=== PATIENT | male | born 1995 | race Caucasian/White ===

== ENCOUNTER 2016-11-24 20:24 | Emergency (ER) | payer OTHER ==
[~2016-11-24] VITALS: Ht 180.3 cm; Wt 61.0 kg
[2016-11-24 20:33] VITALS: BP 117/75; PULSE 60; RESP 16; TEMP 98.4; O2SAT 100
[2016-11-24] MEDS ORDERED: LIDOCAINE 1%/EPINEPHrine 1:100,000 SOLN 20 ML VIAL INFIL ONE (22:15)
[2016-11-24] MEDS ORDERED: TETANUS/DIPHTHERIA TOXOID ADULT 0.5 ML VIAL IM ONE (22:15)
--- NOTE | 2016-11-24 22:29 | PD ---
HPI Chief Complaint: Laceration/Skin Injury Time Seen by Provider: 22:00 Travel History International Travel<30 days: No Contact w/Intl Traveler<30days: No Traveled to known affect area: No History of Present Illness HPI 21-year-old right-handed male presents to the emergency room for evaluation of right hand laceration that occurred just prior to arrival. Patient states a glass was falling and he attempted to catch it and sustained a large laceration to the palmar aspect of his right hand. Patient states it bled a lot. He is not on blood thinners. He went to an urgent care center where he was told to go to the emergency room because he was having problems flexing his finger. Patient states he cannot flex the second digit. He denies paresthesias. Unknown last tetanus. PFSH Past Medical History ADHD: Yes Cancer: No Cardiovascular Problems: Yes (HEART MURMUR) Psychiatric: Yes Immunizations Current: Yes Seizures: No Thyroid Disease: No Ulcer: No Tetanus Vaccination: > 5 Years Influenza Vaccination: No Past Surgical History Surgical History: No Previous Surgery Social History Alcohol Use: Yes (Occ.) Tobacco Use: Yes (11/22 PPD) Substance Use: Yes (Marijuana occ.) Allergies-Medications (Allergen,Severity, Reaction): Coded Allergies: No Known Allergies (Verified , 11/24/16) Reported Meds & Prescriptions Reported Meds & Active Scripts Active Keflex (Cephalexin) 500 Mg Cap 500 Mg PO Q6H 7 Days Review of Systems Except as stated in HPI: all other systems reviewed are Neg Physical Exam Narrative GENERAL: Well-nourished, well-developed male in no acute distress. Afebrile. Ambulatory. SKIN: Warm and dry. There is a 3 deep cm horizontal laceration about 1 cm below the second and third fingers on the palmar side of the right hand. Hemostasis controlled. HEAD: Normocephalic. EYES: No scleral icterus. No injection or drainage. NECK: Supple, trachea midline. No JVD or lymphadenopathy. EXTREMITY: Right hand mildly tender to palpation over the laceration. Patient has no flexion of the second digit; extension is intact. No edema. Normal opposition of thumb. Distal extremity neurovascularly intact with intact two point discrimination and less than 2 second capillary refill. Data Data Last Documented VS Vital Signs Date Time Temp Pulse Resp B/P Pulse Ox O2 Delivery O2 Flow Rate FiO2 11/24/16 20:33 98.4 60 16 117/75 100 Room Air Orders Tetanus/Diphtheria Tox Adult (Tetanus/Di (11/24/16 22:15) Lidocai-Epi 1%-1:100,000 Inj (Xylocaine- (11/24/16 22:15) Hand, Limited (2vws) (11/24/16 ) Cephalexin (Keflex) (11/24/16 23:00) Ibuprofen (Motrin) (11/24/16 23:00) MDM Medical Decision Making Medical Screen Exam Complete: Yes Emergency Medical Condition: Yes Medical Record Reviewed: Yes Differential Diagnosis Tendon injury versus laceration versus abrasion versus Narrative Course 21-year-old right-handed male presents to the emergency room for evaluation of laceration to the right hand occurred just prior to arrival. There is a 4 cm laceration on the volar right hand 1 cm below the second and third fingers. Patient has no flexion of the second digit. Extension is intact. Neurovascularly intact with less than 2 second capillary refill and 2 point discrimination. Laceration was caused by glass; x-ray shows no retained foreign body. Tetanus was updated. I spoke to the hand surgeon, Dr. Kwok, who recommends closing the wound, applying splint, and having the patient follow up in his office on Sunday for surgical repair of the tendon laceration. See procedure note for details. Patient placed in a modified ulnar gutter. Patient given ibuprofen and Keflex in the emergency room. Discharged with prescription for Keflex. Stressed the importance of follow-up on Sunday for surgery or return sooner for worsening symptoms such as cyanosis or decreased capillary refill. He understands and agrees to this plan. Procedures Procedure Narrative LACERATION LOCATION: Right volar hand LENGTH: 4 cm NUMBER OF STITCHES/JOE: 7 simple interrupted REPAIR: The area of the laceration was prepped with Betadine and sterilely draped. The laceration was infiltrated with 1% lidocaine with epinephrine. The wound was copiously irrigated and explored without evidence of foreign body , tendon injury or neurovascular injury. The wound was closed using 5-0 Prolene. This was a single layer repair. A sterile dressing was applied. The patient was advised to keep the dressing clean and dry. Patient tolerated the procedure well. Diagnosis Primary Impression: Laceration of right hand involving tendon Qualified Code: S61.411A - Laceration of right hand involving tendon, initial encounter Referrals: Anna Kwok MD Patient Instructions: General Instructions, Tendon Laceration (ED) Additional Instructions: Rest and drink plenty of fluids. Keep hand clean and dry. Keep splint on until follow-up. Take ibuprofen with food as directed, as needed for pain. You need surgery to correct the tendon laceration. Follow-up with the hand surgeon, Dr. Kwok. Call his office on Sunday for appointment. Return to the emergency room for worsening symptoms. Med/Other Pt SpecificInfo: Prescription(s) given Scripts Cephalexin (Keflex)500 Mg Hue866 Mg PO Q6H 7 Days Ref 0 Prov:Shalini Castaneda MD 11/24/16 Disposition: 01 DISCHARGE HOME Condition: Stable Rosalina Lenz Nov 24, 2016 22:29
--- NOTE | 2016-11-24 22:47 | RADHPO ---
EXAM DATE/TIME: 11/24/2016 22:28 [facility] COMPARISON: No previous studies available for comparison. INDICATIONS : Evaluate for foreign body. Patient cut hand with glass. MEDICAL HISTORY : None. SURGICAL HISTORY : None. ENCOUNTER: Initial ACUITY: 1 day PAIN SCORE: 8/10 LOCATION: Right upper extremity FINDINGS: Two view examination of the right hand demonstrates no soft tissue swelling, dislocation, or fracture . The joint spaces are maintained. Bony mineralization is normal. CONCLUSION: 1. No acute findings. No radiopaque foreign body is identified. Pedrito Michelle MD on November 24, 2016 at 22:44 Board Certified Radiologist. This report was verified electronically.
[2016-11-24] MEDS ORDERED: CEPH-460 PO (22:58)
[2016-11-24] MEDS ORDERED: IBUPROFEN 600 MG TAB PO ONE (23:00)
[2016-11-24] MEDS ORDERED: CEPHALEXIN MONOHYDRATE 500 MG CAP PO ONE (23:00)
[2016-11-25 00:02] VITALS: BP 128/72
[2016-11-25] MEDS ORDERED: IBUP800T23 PO (16:46)
[2016-12-07] MEDS ORDERED: IBUP800T23 PO (11:07)
[2016-12-08] MEDS ORDERED: IBUP800T23 PO (14:20)
== END 2016-11-25 00:05 | disposition home or self-care (01) ==
LOC: PHED 20:24 → PHEFT 11-25 00:05
DX: S66.921A Laceration of unspecified muscle, fascia and tendon at wrist and hand level, right hand, initial encounter (principal); R01.1 Cardiac murmur, unspecified; F90.9 Attention-deficit hyperactivity disorder, unspecified type; Z23 Encounter for immunization; W25.XXXA Contact with sharp glass, initial encounter
CPT/HCPCS: 12002; 29125; 73120; 90471; 90714

== ENCOUNTER 2016-11-25 15:15 | Emergency (ER) | payer OTHER ==
[~2016-11-25] VITALS: Ht 180.3 cm; Wt 60.7 kg
[~2016-11-25 15:15] MED LIST: CEPH-460 PO
[2016-11-25 15:28] VITALS: BP 123/87; PULSE 56; RESP 16; TEMP 98.5; O2SAT 100
[2016-11-25] MEDS ORDERED: CEPHALEXIN MONOHYDRATE 500 MG CAP PO ONE (16:45)
[2016-11-25] MEDS ORDERED: IBUPROFEN 800 MG TAB PO ONE (16:45)
[2016-11-25] MEDS ORDERED: IBUP800T23 PO (16:46)
--- NOTE | 2016-11-25 16:46 | PD ---
HPI Chief Complaint: Wound/Suture/Staple Re-Check Time Seen by Provider: 16:39 Travel History International Travel<30 days: No Contact w/Intl Traveler<30days: No Traveled to known affect area: No History of Present Illness HPI Patient is a 21-year-old male presenting for wound check. He was seen here yesterday for right volar laceration with a broken glass. There is evidence of right second digit flexor tendon involvement. The PA yesterday spoke to Dr. Kwok who recommended closure and placing patient in the splint as well as Keflex prophylaxis. Patient was given 1 dose here as well as tetanus updated and given a prescription. He has not filled the prescription as of yet. He reports pain in the palm like it is swelling. He feels like the splint was on too tight and he denies any paresthesias or cyanosis. He denies any sensation loss. Denies fever. He has kept the splint in place. PFSH Past Medical History ADHD: Yes Cancer: No Cardiovascular Problems: Yes (HEART MURMUR) Psychiatric: Yes Immunizations Current: Yes Seizures: No Thyroid Disease: No Ulcer: No Social History Alcohol Use: Yes (Occ.) Tobacco Use: Yes (11/22 PPD) Substance Use: Yes (Marijuana occ.) Allergies-Medications (Allergen,Severity, Reaction): Coded Allergies: No Known Allergies (Verified , 11/25/16) Reported Meds & Prescriptions Reported Meds & Active Scripts Active Keflex (Cephalexin) 500 Mg Cap 500 Mg PO Q6H 7 Days Review of Systems General / Constitutional: No: Fever, Chills Musculoskeletal: Positive: Other (loss range of motion a second digit right hand per history of present illness) Skin: Positive Other (laceration per history of present illness) Neurologic: No: Weakness, Focal Abnormalities, Paresthesia, Sensory Disturbance Physical Exam Narrative GENERAL: Well-developed and well-nourished adult male in no acute distress. SKIN: Warm and dry. Good turgor without tenting. HEAD: Normocephalic and atraumatic. EYES: PERRL bilaterally, 5mm. EOMI bilaterally. No injection or icterus present. No proptosis. Lids without edema or erythema. CARDIOVASCULAR: Regular rate and rhythm without murmurs, rubs, clicks or gallops. Radial pulses 2+ bilaterally. Capillary refill less than 2 seconds distal tip of all fingers of right hand. RESPIRATORY: Clear to auscultation bilaterally with symmetrical rise and fall, no distress or use of accessory muscles. MUSCULOSKELETAL: Close laceration to the volar aspect of the right hand around the second through fourth digits. There is no crusting or bleeding, edema, warmth or erythema. No drainage. Mildly tender in this region. All sutures are in place. Patient has full flexion and extension on the thumb and the third through fifth digits of the right hand and can flex at the MCP joint for the second digit but cannot flex the individual IP joints. Patient freely moving all four extremities spontaneously. Extremities without clubbing, cyanosis, or edema. No obvious deformities. NEUROLOGIC: CN II-XII grossly intact. Awake and alert. She points pronation intact distal tip of all fingers of right hand. Normal speech. PSYCHIATRIC: Appropriate mood and affect; insight and judgment normal. Data Data Last Documented VS Vital Signs Date Time Temp Pulse Resp B/P Pulse Ox O2 Delivery O2 Flow Rate FiO2 11/25/16 15:28 98.5 56 16 123/87 100 Orders Cephalexin (Keflex) (11/25/16 16:45) Ibuprofen (Motrin) (11/25/16 16:45) Splint Or Brace Apply/Monitor (11/25/16 16:38) MDM Medical Decision Making Medical Screen Exam Complete: Yes Emergency Medical Condition: Yes Differential Diagnosis Hand laceration versus wound dehiscence versus wound infection versus neurovascular injury Narrative Course Patient is a 21-year-old male presenting with pain at laceration site that was repaired last evening. He's been in a splint and told me that he thinks it was too tight and he's had some swelling and burning and pain in the hand. Denies any systemic symptoms and he is afebrile and nontoxic appearing. It appears to be healing well. He has not filled his antibiotics yet however this would be rather early for infection. Splint was are removed by staff when I evaluated the patient and he is still neurovascularly intact and I see no evidence at this point was on too tight causing neurovascular compromise. He seems to complain that he did not receive any medication for pain and has not taken OTC ibuprofen or Tylenol as he does not have any at home. The wound was dressed and a new splint was applied. Patient was given a Keflex and ibuprofen here and recommended to fill a prescription of Keflex he has already, gave him prescription for ibuprofen for the pain. He is a follow-up with Dr. Kwok on Sunday as previously agreed.See discharge paperwork for further instructions. The plan was discussed with the patient who acknowledged their understanding and agreement. Reinforced the follow-up with primary care is critically important. Patient instructed on emergent conditions that should prompt return to ED. Diagnosis Primary Impression: Laceration of right hand involving tendon Qualified Code: S61.411D - Laceration of right hand involving tendon, subsequent encounter Referrals: Anna Kwok MD Patient Instructions: General Instructions Additional Instructions: Fill your prescriptions and begin taking them as soon as possible Keep splint in place until seen by Dr. Kwok on Sunday Call Dr. Kwok Sunday morning for appointment same day Return to the ED for any acute worsening of symptoms including worsening pain or fever Med/Other Pt SpecificInfo: Prescription(s) given Disposition: DISCHARGE HOME Condition: Stable Douglas Horne III Nov 25, 2016 16:46
[2016-12-07] MEDS ORDERED: IBUP800T23 PO (11:07)
[2016-12-08] MEDS ORDERED: IBUP800T23 PO (14:20)
== END 2016-11-25 17:40 | disposition home or self-care (01) ==
LOC: PHEFT 15:15
DX: S61.411D Laceration without foreign body of right hand, subsequent encounter (principal); W25.XXXD Contact with sharp glass, subsequent encounter; Y93.9 Activity, unspecified; Z72.0 Tobacco use; F12.90 Cannabis use, unspecified, uncomplicated
CPT/HCPCS: 29125

== ENCOUNTER 2016-11-28 13:35 | Emergency (ER) | payer OTHER ==
[~2016-11-28] VITALS: Ht 180.3 cm; Wt 62.2 kg
[~2016-11-28 13:35] MED LIST changes: +IBUP800T23 PO
[2016-11-28 13:41] VITALS: BP 143/87; PULSE 67; RESP 16; TEMP 97.3; O2SAT 98
--- NOTE | 2016-11-28 14:14 | PD ---
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 Patient had a volar splint placed 4 days ago after sustaining a tendon laceration of the right second finger. He came in the following day requesting a splint to be removed because it was too tight. He had a new splint placed today. Patient presents today stating that his new splint got wet in the shower and his hand feels constantly wet. Patient believes it is due to sweat. He has sutures on the palmar aspect of the right hand. Denies paresthesias. Reports stiffness in his hand from keeping it still. PFSH Past Medical History ADHD: Yes Blood Disorders: No Cancer: No Cardiovascular Problems: Yes (HEART MURMUR) Diminished Hearing: No Psychiatric: Yes Immunizations Current: Yes Seizures: No Thyroid Disease: No Ulcer: No Past Surgical History Surgical History: No Previous Surgery Other Surgery: No Social History Alcohol Use: Yes (FEW TIMES PER WEEK) Tobacco Use: Yes (11/22 PPD) Substance Use: Yes (Marijuana occ.) Allergies-Medications (Allergen,Severity, Reaction): Coded Allergies: No Known Allergies (Verified , 11/28/16) Reported Meds & Prescriptions Reported Meds & Active Scripts Active Ibuprofen 800 Mg Tab 800 Mg PO Q8H Keflex (Cephalexin) 500 Mg Cap 500 Mg PO Q6H 7 Days Review of Systems Except as stated in HPI: all other systems reviewed are Neg Physical Exam Narrative GENERAL: Well-nourished, well-developed male in no acute distress. Afebrile. Ambulatory. SKIN: Warm and dry. There is a 3 cm slightly macerated laceration on the palmar aspect of the right hand. Sutures are intact. No drainage. No lymphangitis. No signs of infection. HEAD: Normocephalic. EYES: No scleral icterus. No injection or drainage. NECK: Supple, trachea midline. No JVD or lymphadenopathy. EXTREMITY: Right hand nontender. Full range of motion in all joints except the right second digit which has no flexion ability. No edema. Data Data Last Documented VS Vital Signs Date Time Temp Pulse Resp B/P Pulse Ox O2 Delivery O2 Flow Rate FiO2 11/28/16 13:41 97.3 67 16 143/87 98 Orders Splint Or Brace Apply/Monitor (11/28/16 14:02) MDM Medical Decision Making Medical Screen Exam Complete: Yes Emergency Medical Condition: Yes Medical Record Reviewed: Yes Differential Diagnosis Tendon laceration versus wound recheck versus splint recheck Narrative Course 21-year-old male presents to the emergency room for splint recheck. He had a splint placed 4 days ago after lacerating a flexor tendon on the right hand. This is the patient's third visit for this same complaint. States the splint got wet and his hand feels constantly sweaty. This is concerning because of the underlying laceration. Splint was removed. There is no evidence of infection but the laceration is slightly macerated. Wound care provided. Patient will be placed in Velcro wrist splint with finger splint extension to keep his second finger slightly flexed. He has a follow-up appointment with hand surgeon in 2 days. Patient told to return for worsening symptoms. He understands and agrees to plan. Diagnosis Primary Impression: Laceration of right hand involving tendon Qualified Code: S61.411D - Laceration of right hand involving tendon, subsequent encounter Referrals: Anna Kwok MD Patient Instructions: General Instructions, Tendon Laceration (ED) Additional Instructions: Keflex as directed, until gone. Follow-up with Dr. Kwok as scheduled. You can take splint off to shower but be sure to replace it afterwards. Disposition: 01 DISCHARGE HOME Condition: Stable Rosalina Lenz Nov 28, 2016 14:14
[2016-12-07] MEDS ORDERED: IBUP800T23 PO (11:07)
[2016-12-08] MEDS ORDERED: IBUP800T23 PO (14:20)
== END 2016-11-28 14:26 | disposition home or self-care (01) ==
LOC: PHEFT 13:35
DX: S61.411D Laceration without foreign body of right hand, subsequent encounter (principal); Z48.00 Encounter for change or removal of nonsurgical wound dressing
CPT/HCPCS: 99282; L3908

== ENCOUNTER 2016-12-04 13:18 | Emergency (ER) | payer OTHER ==
[~2016-12-04] VITALS: Ht 180.3 cm; Wt 60.0 kg
[2016-12-04 13:25] VITALS: BP 128/76; PULSE 60; RESP 16; TEMP 98.1; O2SAT 100
--- NOTE | 2016-12-04 14:11 | PD ---
HPI Chief Complaint: Wound/Suture/Staple Re-Check Time Seen by Provider: 14:11 Travel History International Travel<30 days: No Contact w/Intl Traveler<30days: No Traveled to known affect area: No History of Present Illness HPI 21-year-old male presents to the emergency department for evaluation of right hand wound. The patient was initially seen 11/24/16 4 a laceration to his right hand palm and right second finger flexor tendon. Sutures were placed at that time and he was prescribed Keflex. Patient subsequently came back the next day to already for the splint to be changed because it was too tight. Patient was seen 11/28/16 in our emergency department again because he felt as though the wound was wet and had the splint removed again and was given a Velcro splint. He was seen by Dr. Kwok hand surgeon 11/30/16 for preoperative visit, he is scheduled to have surgical repair of flexor tendon of right index finger on 12/08. The patient came in today because he became angry that he could not write and pulled his splint off. He initially states he is here to have the splint replaced but then begins to become very emotional and tell me about his social stressors. He states he has lost his job due to this injury and will be kicked out of his home this Sunday because he can't pay rent. States he is having suicidal ideations due to his worsening depression. He denies any attempts to harm himself, denies any ingestion of substances. He denies any homicidal ideations. Denies any alcohol use. Admits to marijuana use. He admits that he has a history of bipolar disorder and depression and has been off his Risperdal for the past month because he ran out. States he has attempted suicide in the past. He is requesting to "speak with someone" regarding his psychological distress. No other complaints. PFSH Past Medical History Hx Anticoagulant Therapy: No ADHD: Yes Blood Disorders: No Cancer: No Cardiovascular Problems: Yes (Heart murmur) Diabetes: No Diminished Hearing: No Psychiatric: Yes Immunizations Current: Yes Seizures: No Thyroid Disease: No Ulcer: No Tetanus Vaccination: < 5 Years Influenza Vaccination: No Past Surgical History Surgical History: No Previous Surgery Other Surgery: No Social History Alcohol Use: Yes (Occ.) Tobacco Use: Yes (1/4 PPD) Substance Use: Yes (Marijuana occ. (Denies today 12/04/16)) Allergies-Medications (Allergen,Severity, Reaction): Coded Allergies: No Known Allergies (Verified , 12/04/16) Reported Meds & Prescriptions Reported Meds & Active Scripts Active Keflex (Cephalexin) 500 Mg Cap 500 Mg PO Q6H 7 Days Review of Systems Except as stated in HPI: all other systems reviewed are Neg Physical Exam Narrative GENERAL: Well-nourished and well-developed pleasant patient in no acute distress who is nontoxic appearing. SKIN: Warm and dry. Right hand sutures in place, no erythema or warmth, no discharge or drainage, no swelling. HEAD: Normocephalic and atraumatic. EYES: No injection, drainage, or hyphema noted. PERRLA. EOMI. ENT: No nasal drainage noted. Oropharynx is clear. NECK: Supple and the trachea is midline. CARDIOVASCULAR: Regular rate and rhythm. RESPIRATORY: Breath sounds are equal bilaterally with no accessory muscle use, wheezing, rhonchi, or crackles. GASTROINTESTINAL: Abdomen is soft, non-tender, and nondistended. MUSCULOSKELETAL: No obvious deformities, swelling, cyanosis, or ecchymosis is present throughout the upper and lower extremities. Patient has full range of motion without any signs of neurovascular compromise. NEUROLOGICAL: Awake, alert, and oriented. Normal speech and gait. Cranial nerves are grossly intact. Data Data Last Documented VS Vital Signs Date Time Temp Pulse Resp B/P Pulse Ox O2 Delivery O2 Flow Rate FiO2 12/04/16 16:36 98.9 57 20 168/80 97 Room Air Orders Splint Or Brace Apply/Monitor (12/04/16 13:56) Complete Blood Count With Diff (12/04/16 14:11) Comprehensive Metabolic Panel (12/04/16 14:11) Drug Screen, Random Urine (12/04/16 14:11) Alcohol (Ethanol) (12/04/16 14:11) Psych Screen (12/04/16 14:11) Diet Regular Basic (12/04/16 Dinner) Labs Laboratory Tests Test 12/04/16 14:25 White Blood Count 3.7 TH/MM3 Red Blood Count 5.36 MIL/MM3 Hemoglobin 15.1 GM/DL Hematocrit 44.8 % Mean Corpuscular Volume 83.6 FL Mean Corpuscular Hemoglobin 28.2 PG Mean Corpuscular Hemoglobin 33.8 % Concent Red Cell Distribution Width 12.8 % Platelet Count 156 TH/MM3 Mean Platelet Volume 9.6 FL Neutrophils (%) (Auto) 56.9 % Lymphocytes (%) (Auto) 24.8 % Monocytes (%) (Auto) 15.0 % Eosinophils (%) (Auto) 2.2 % Basophils (%) (Auto) 1.1 % Neutrophils # (Auto) 2.1 TH/MM3 Lymphocytes # (Auto) 0.9 TH/MM3 Monocytes # (Auto) 0.6 TH/MM3 Eosinophils # (Auto) 0.1 TH/MM3 Basophils # (Auto) 0.0 TH/MM3 CBC Comment DIFF FINAL Differential Comment Sodium Level 141 MEQ/L Potassium Level 4.1 MEQ/L Chloride Level 106 MEQ/L Carbon Dioxide Level 29.2 MEQ/L Anion Gap 6 MEQ/L Blood Urea Nitrogen 12 MG/DL Creatinine 0.85 MG/DL Estimat Glomerular Filtration 114 ML/MIN Rate Random Glucose 88 MG/DL Calcium Level 9.0 MG/DL Total Bilirubin 0.3 MG/DL Aspartate Amino Transf 14 U/L (AST/SGOT) Alanine Aminotransferase 18 U/L (ALT/SGPT) Alkaline Phosphatase 87 U/L Total Protein 8.5 GM/DL Albumin 3.9 GM/DL Ethyl Alcohol Level LESS THAN 3 MG/DL MDM Medical Decision Making Medical Screen Exam Complete: Yes Emergency Medical Condition: Yes Differential Diagnosis Splint replacement versus mood disorder versus depression versus suicidal ideations Narrative Course 21-year-old male presents to the emergency department to get right hand splint replaced and for evaluation of worsening depression with suicidal ideations. Patient is afebrile, vital signs are stable. The patient's right hand wound appears to be healing well with no signs of infection. He is scheduled for outpatient surgery with hand specialist Dr. Kwok on Sunday. He is stating he is having worsening depression and suicidal ideations. No attempted suicide , no ingestion of substances. Physical examination is essentially unremarkable. Labs have been ordered and are pending. Patient is agreeable to psych screen on a voluntary basis. He will not be placed under [place] act at this time as he is agreeable to be transferred to the main for evaluation. Psych screen has been ordered. The laboratory results are unremarkable. The patient is medically cleared for psychiatric evaluation and disposition. Diagnosis Primary Impression: Depression with suicidal ideation Additional Impression: Laceration of right hand involving tendon Qualified Code: S61.411S - Laceration of right hand involving tendon, sequela Roseanne Clifford Dec 04, 2016 14:11
[2016-12-04 14:28] LABS: AUTOMATED NEUTROPHIL # 2.1 TH/MM3 (1.8-7.7); BASOPHIL % 1.1 % (0.0-2.0); EOSINOPHIL # 0.1 TH/MM3 (0-0.4); EOSINOPHIL % 2.2 % (0.0-4.0); HEMATOCRIT 44.8 % (39.0-51.0); HEMO FLAGS DIFF FINAL; LYMPH % 24.8 % (9.0-44.0); LYMPHOCYTE # 0.9 TH/MM3 (1.0-4.8); MEAN CELL VOLUME 83.6 FL (80.0-100.0); MEAN CORPUSCULAR HEMOGLOBIN 28.2 PG (27.0-34.0); MEAN CORPUSCULAR HGB CONC 33.8 % (32.0-36.0); NEUT % 56.9 % (16.0-70.0); PLATELET COUNT 156 TH/MM3 (150-450); RED BLOOD COUNT 5.36 MIL/MM3 (4.50-5.90); RED CELL DISTRIBUTION WIDTH 12.8 % (11.6-17.2); WHITE BLOOD COUNT 3.7 TH/MM3 (4.0-11.0)
[2016-12-04 14:36] LABS: CHLORIDE 106 MEQ/L (98-107); POTASSIUM 4.1 MEQ/L (3.5-5.1); SODIUM (NA) 141 MEQ/L (136-145)
[2016-12-04 14:39] LABS: ANION GAP 6 MEQ/L (5-15); BICARBONATE 29.2 MEQ/L (21.0-32.0)
[2016-12-04 14:40] LABS: BLOOD UREA NITROGEN 12 MG/DL (7-18)
[2016-12-04 14:43] LABS: ALT (GPT) 18 U/L (12-78); AST (GOT) 14 U/L (15-37); GLOMERULAR FILTRATION RATE 114 ML/MIN (>89)
[2016-12-04 14:44] LABS: TOTAL BILIRUBIN ADULT 0.3 MG/DL (0.2-1.0)
[2016-12-04 14:45] LABS: ALKALINE PHOSPHATASE 87 U/L (45-117)
[2016-12-04 16:36] VITALS: BP 168/80; PULSE 57; RESP 20; TEMP 98.9; O2SAT 97
[2016-12-04 17:53] LABS: AMPHETAMINE, URINE NEG (NEG); BARBITURATES, URINE NEG (NEG); COCAINE, URINE NEG (NEG)
[2016-12-04 17:57] VITALS: BP 142/73; PULSE 75; RESP 18; O2SAT 100
[2016-12-07] MEDS ORDERED: IBUP800T23 PO (11:07)
[2016-12-08] MEDS ORDERED: IBUP800T23 PO (14:20)
== END 2016-12-04 19:11 | disposition home or self-care (01) ==
LOC: PHEFT 13:18 → NEPJ 19:11
DX: S61.411S Laceration without foreign body of right hand, sequela (principal); R45.851 Suicidal ideations; F12.90 Cannabis use, unspecified, uncomplicated; F90.9 Attention-deficit hyperactivity disorder, unspecified type
CPT/HCPCS: 29125; 80053; 80307; 80320; 85025; 99281

== ENCOUNTER → 2016-12-08 | Day surgery (SDC) | payer OTHER ==
[~2016-12-08] VITALS: Ht 180.3 cm; Wt 61.6 kg
[~2016-12-08] MED LIST changes: +*MEPERIDINE 25 MG INJ VIAL PERIprocedural Use ONLY ONE; +BUPIVACAINE HCL PF 0.5% 30 ML VIAL ONE; +DEXT 5%-NACL 0.45% 1000 ML INJ 1,000 ML IV SCH; +DO NOT ADM ANY ANTICOAGULANT DRUGS XX PRN; +INSULIN HUMAN REGULAR 1,000 UNITS/10 ML VIAL SQ PRN; +KETOROLAC TROMETHAMINE 10 MG TAB ONE; +LACTATED RINGER'S 1000 ML IV SCH; +METOPROLOL TARTRATE 25 MG TAB PO PRN; +MIDAZOLAM HCL 2 MG/2 ML VIAL ONE; +NORC5TAB PO; +ONDANSETRON HCL 4 MG/2 ML VIAL IV PUSH ONE; +POVIDONE IODINE 10% OINT 1 PACKET TOP ONE; +PROPOFOL 200 MG/20 ML AMP IV ONE; +SODIUM CHLORID 0.9% 500 ML IV SCH; +SODIUM CHLORIDE 0.9% FLUSH 5 ML FLUSH IVF PRN; +SODIUM CHLORIDE 0.9% FLUSH 5 ML FLUSH IVF SCH; +ceFAZolin 2 GM PREMIX 50 ML IV SCH; +fentaNYL CITRATE 250 MCG/5 ML AMP ONE
[2016-12-08 09:19] VITALS: BP 127/83; PULSE 18; RESP 56; TEMP 98.2; O2SAT 97
--- NOTE | 2016-12-08 11:15 | HP.UPD ---
H&P Update Date: Dec 08, 2016 Note The Pre-Admit History and Physical Examination regarding the above named patient was reviewed (including, but not limited to, vital signs, medications, allergies, co-morbid conditions), and upon re-examination it is noted that: Indicated with "X" x - the patient's condition has not significantly changed since the last examination. [] - the patient's condition has changed since the last examination. Changes: Anna Kwok MD Dec 08, 2016 11:15
--- NOTE | 2016-12-08 14:15 | HHI.PR ---
Immediate Post Op Note Procedure Date: Dec 08, 2016 Pre Op Diagnosis: (1) Laceration of right hand involving tendon Post Op Diagnosis: (1) Laceration of right hand involving tendon Surgeon: Anna Kwok Tourist Information Officer(s): Clement Benitez PA-C Procedure: Repair of the right index FDS and FDP zone 3. Anesthesia: General Drains: None Tourniquet time (min at mmHg) 73 minutes at 220 mm Hg. Patient to: PACU Patient Condition: Good Date/Time of Procedure: SEE SURGICAL CARE RECORD Anna Kwok MD Dec 08, 2016 14:15
[2016-12-08 16:15] VITALS: BP 139/82; PULSE 72; RESP 18; TEMP 98; O2SAT 99
--- NOTE | 2016-12-13 08:07 | MP ---
cc: YURI NOVAK M.D. DATE OF SURGERY: 12/08/2016 PREOPERATIVE DIAGNOSIS 1. Lacerated right index flexor digitorum profundus in zone 3. 2. Laceration of right index flexor digitorum superficialis in zone 3. POSTOPERATIVE DIAGNOSIS 1. Lacerated right index flexor digitorum profundus in zone 3. 2. Laceration of right index flexor digitorum superficialis in zone 3. PROCEDURE Repair of flexor tendons of right hand. ANESTHESIA General. SURGEON Yuri Novak MD TRAVELING SALES REPRESENTATIVE Clement Abel PA-C INDICATIONS A 21-year-old male with injury to his right hand within the last two weeks. FINDINGS The tendons were in zone 3. The proximal and distal ends were easily retrieved. At the completion of the procedure both tendons had been repaired and were able to glide easily. TOURNIQUET TIME 73 minutes. DETAILS OF PROCEDURE The patient was seen preoperatively where the site and side were identified and marked. The patient was then taken to the operating and placed in the supine position. His identity was checked against the arm band and the consent form, site and side confirmed. A timeout was called prior to beginning the procedure. The right upper extremity was prepped with Hibiclens and draped in the usual sterile fashion. The area to be incised was outlined with a marking pen a zig-zag incision based on the original injury. The arm was then exsanguinated and the tourniquet inflated to 220 mmHg. The previous sutures were removed and a 15 blade was used to excise the area of the previous injury. This was removed as an elliptical excision. The area was explored. The distal ends were found by flexing the tendons. The tendons were debrided sharply after irrigation and sutures were placed using 3-0 Ethibond suture material with clasping sutures. This was done to the two distal ends. The two proximal ends were identified within the carpal tunnel and after making proximal incisions they were passed through into the wound after placing sutures within them. Attention was first turned to the deep tendon which was brought into approximation and an additional suture was placed as a clasping suture to create a four-strand repair. The two ends were joined by first joining the center strands and then the ones on the sides of the tendon. This was on the profundus and the same thing was then done on the superficialis. Adequate gliding was noted. The finger was put through a full range of motion. The wound was then copiously irrigated with saline and the wound then repaired with interrupted and running 5-0 nylon suture. The wound was then closed with interrupted and running 5-0 nylon suture. A median nerve block as well as a dorsal radial nerve block was effected with bupivacaine 0.5% plain prior to beginning the case. Once the wound was closed the tourniquet was released after approximately 73 minutes of tourniquet time. Pressure was applied and after several minutes there was no evidence of any oozing. A dressing was applied using povidone-iodine ointment, Adaptic, Telfa, fluffy gauze, hand wrap and a dorsal splint with the wrist flexed at 45 degrees, the fingers flexed at 70 degrees and the fingers also flexed. A dorsal splint was placed and then this was reinforced with casting material as an external hard cast to prevent movement and removal of the dressing. The patient was then taken from the operating room to the recovery room in satisfactory condition having tolerated the procedure well. Postoperative instructions include keeping the arm elevated, keeping it clean and dry, and returning next week for follow-up. MD SOTO Anderson/ISHAN /2:23 PM /7:42 AM
== END | disposition home or self-care (01) ==
LOC: HSDC 08:40
PROVIDERS: ATTEND Specialist
DX: S66.190A Other injury of flexor muscle, fascia and tendon of right index finger at wrist and hand level, initial encounter (principal); S61.411A Laceration without foreign body of right hand, initial encounter
CPT/HCPCS: 01810; 26350; J0690; J2175; J2250; J2405; J3010; J7120

== ENCOUNTER 2016-12-09 16:20 | Emergency (ER) | payer OTHER ==
[~2016-12-09] VITALS: Ht 180.3 cm; Wt 60.0 kg
[~2016-12-09 16:20] MED LIST changes: -*MEPERIDINE 25 MG INJ VIAL PERIprocedural Use ONLY ONE; -BUPIVACAINE HCL PF 0.5% 30 ML VIAL ONE; -DEXT 5%-NACL 0.45% 1000 ML INJ 1,000 ML IV SCH; -DO NOT ADM ANY ANTICOAGULANT DRUGS XX PRN; -INSULIN HUMAN REGULAR 1,000 UNITS/10 ML VIAL SQ PRN; -KETOROLAC TROMETHAMINE 10 MG TAB ONE; -LACTATED RINGER'S 1000 ML IV SCH; -METOPROLOL TARTRATE 25 MG TAB PO PRN; -MIDAZOLAM HCL 2 MG/2 ML VIAL ONE; -NORC5TAB PO; -ONDANSETRON HCL 4 MG/2 ML VIAL IV PUSH ONE; -POVIDONE IODINE 10% OINT 1 PACKET TOP ONE; -PROPOFOL 200 MG/20 ML AMP IV ONE; -SODIUM CHLORID 0.9% 500 ML IV SCH; -SODIUM CHLORIDE 0.9% FLUSH 5 ML FLUSH IVF PRN; -SODIUM CHLORIDE 0.9% FLUSH 5 ML FLUSH IVF SCH; -ceFAZolin 2 GM PREMIX 50 ML IV SCH; -fentaNYL CITRATE 250 MCG/5 ML AMP ONE
[2016-12-09 16:30] VITALS: BP 130/87; PULSE 72; RESP 16; TEMP 98.2; O2SAT 97
[2016-12-09] MEDS ORDERED: HYDROmorphone HCL PF 2 MG/ML VIAL SQ ONE (16:45)
--- NOTE | 2016-12-09 16:51 | PD ---
HPI . Postop pain Chief Complaint: Wound/Suture/Staple Re-Check Time Seen by Provider: 16:38 Travel History International Travel<30 days: No Contact w/Intl Traveler<30days: No Traveled to known affect area: No History of Present Illness HPI Patient presents complaining with pain following surgery yesterday. He had tendon repair in his right hand. He is complaining with pain at the surgical site. He is concerned that his cast is too tight. PFSH Past Medical History Hx Anticoagulant Therapy: No ADHD: Yes Blood Disorders: No Cancer: No Cardiovascular Problems: Yes (Heart murmur) Diabetes: No Diminished Hearing: No Endocrine: No Genitourinary: No Hepatitis: No Hiatal Hernia: No Immune Disorder: No Musculoskeletal: No Neurologic: No Psychiatric: Yes Reproductive: No Respiratory: No Immunizations Current: Yes Seizures: No Thyroid Disease: No Ulcer: No Past Surgical History AICD: No Joint Replacement: No Pacemaker: No Other Surgery: No Social History Alcohol Use: Yes (Occ.) Tobacco Use: Yes (11/22 PPD) Substance Use: Yes (LAST USED COCAINE, METH 2 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 SKIN: Warm and dry. He has brisk capillary refill in all fingers. The tips of the fingers are warm. He has normal movement distal to his cast. HEAD: Atraumatic. Normocephalic. EYES: Pupils equal and round. ENT: No nasal bleeding or discharge. Mucous membranes pink and moist. NECK: Trachea midline. CARDIOVASCULAR: Regular rate and rhythm. RESPIRATORY: No accessory muscle use. MUSCULOSKELETAL: Cast in place, right hand and distal forearm. NEUROLOGICAL: Awake and alert. No obvious cranial nerve deficits. Motor grossly within normal limits. Normal speech. PSYCHIATRIC: Appropriate mood and affect; insight and judgment normal. Somewhat anxious. Data Data Last Documented VS Vital Signs Date Time Temp Pulse Resp B/P Pulse Ox O2 Delivery O2 Flow Rate FiO2 12/09/16 16:30 98.2 72 16 130/87 97 Orders Hydromorphone Pf Inj (Dilaudid Pf Inj) (12/09/16 16:45) [facility] Medical Decision Making Medical Screen Exam Complete: Yes Emergency Medical Condition: Yes Medical Record Reviewed: Yes Differential Diagnosis Differential diagnosis includes but is not limited to normal postoperative pain , compartment syndrome, constricting cast. Narrative Course Patient presents with postoperative pain in his right hand. He has normal capillary refill, normal skin temperature and normal movement distal to the cast. Therefore, I do not believe that the cast is too tight. He does not seem to have any unusual pain when he moves his fingertips. Therefore, I doubt compartment syndrome. I have looked him up on [employer]. He has not had any narcotic prescriptions within the last year. I feel it is reasonable to treat him with a short course of narcotic pain medication postoperatively. Diagnosis Primary Impression: Laceration of right hand involving tendon Qualified Code: S61.411D - Laceration of right hand involving tendon, subsequent encounter Patient Instructions: Compartment Syndrome (GEN), General Instructions Scripts Hydrocodone-Acetaminophen (Kirby)5-325 mg Tab1-2 Tab PO Q6H PRN (PAIN) #15 TAB Ref 0 Prov:Rebecca Valencia MD 12/09/16 Disposition: 01 DISCHARGE HOME Condition: Stable Rebecca Valencia MD Dec 09, 2016 16:50
[2016-12-09] MEDS ORDERED: NORC5TAB PO (16:53)
== END 2016-12-09 18:14 | disposition home or self-care (01) ==
LOC: PHEFT 16:20
DX: G89.18 Other acute postprocedural pain (principal); F17.210 Nicotine dependence, cigarettes, uncomplicated; F14.21 Cocaine dependence, in remission
CPT/HCPCS: 96372; 99282; J1170

== ENCOUNTER 2016-12-16 11:56 | Emergency (ER) | payer OTHER ==
[~2016-12-16] VITALS: Ht 180.3 cm; Wt 60.0 kg
[~2016-12-16 11:56] MED LIST changes: +NORC5TAB PO
[2016-12-16 11:57] VITALS: BP 139/83; PULSE 80; RESP 16; TEMP 97.6; O2SAT 96
--- NOTE | 2016-12-16 12:18 | PD ---
HPI Chief Complaint: Musculoskeletal Complaint Time Seen by Provider: 12:17 Travel History International Travel<30 days: No Contact w/Intl Traveler<30days: No Traveled to known affect area: No History of Present Illness HPI 21-year-old male presents to the emergency department for the sixth time in the past month for splint replacement. The patient initially had a right index finger tendon laceration sustained 11/24/16 for which she was placed in a splint and instructed to follow-up with hand surgeon Dr. Kwok. He had repair of the right index flexor tendons by Dr. Kwok 12/08/16. He was placed in a cast and his follow-up appointment is this upcoming Sunday. States that today his arm was itching so he stuck a coathanger into his cast and pulled out most of the cast stuffing so then he just took the whole cast off. He is here to have a replacement splint. Denies fever, chills, numbness or tingling, weakness , redness or swelling. No complaints. PFSH Past Medical History Hx Anticoagulant Therapy: No ADHD: Yes Blood Disorders: No Cancer: No Cardiovascular Problems: Yes (Heart murmur) Diabetes: No Diminished Hearing: No Endocrine: No Genitourinary: No Hepatitis: No Hiatal Hernia: No Immune Disorder: No Musculoskeletal: No Neurologic: No Psychiatric: Yes Reproductive: No Respiratory: No Immunizations Current: Yes Seizures: No Thyroid Disease: No Ulcer: No Tetanus Vaccination: < 5 Years Past Surgical History AICD: No Joint Replacement: No Pacemaker: No Other Surgery: No Social History Alcohol Use: Yes (Occ.) Tobacco Use: Yes (11/22 PPD) Substance Use: Yes (LAST USED COCAINE, METH 2 1/2 YRS. AGO) Allergies-Medications (Allergen,Severity, Reaction): Coded Allergies: No Known Allergies (Verified , 12/09/16) Reported Meds & Prescriptions Reported Meds & Active Scripts Active Ibuprofen 800 Mg Tab 800 Mg PO Q8H PRN Keflex (Cephalexin) 500 Mg Cap 500 Mg PO Q6H 7 Days Reported Ibuprofen 800 Mg Tab 800 Mg PO Q8H PRN Review of Systems Except as stated in HPI: all other systems reviewed are Neg Physical Exam Narrative GENERAL: Well-nourished and well-developed male patient in no acute distress. SKIN: Warm and dry. HEAD: Normocephalic and atraumatic. EYES: No injection, drainage, or hyphema noted. PERRLA. EOMI. ENT: No nasal drainage noted. Oropharynx is clear. NECK: Supple and the trachea is midline. CARDIOVASCULAR: Regular rate and rhythm. RESPIRATORY: Breath sounds are equal bilaterally with no accessory muscle use, wheezing, rhonchi, or crackles. MUSCULOSKELETAL: Postoperative sutures in place to right palm of hand. No erythema, warmth, discharge or drainage. Capillary refills within normal limits. Radial pulses are 2+ bilaterally. No obvious deformities, swelling, cyanosis, or ecchymosis is present throughout the upper and lower extremities. NEUROLOGICAL: Awake, alert, and oriented. Normal speech and gait. Cranial nerves are grossly intact. Data Data Last Documented VS Vital Signs Date Time Temp Pulse Resp B/P Pulse Ox O2 Delivery O2 Flow Rate FiO2 12/16/16 11:57 97.6 80 16 139/83 96 Room Air Orders Splint Or Brace Apply/Monitor (12/16/16 12:17) MDM Medical Decision Making Medical Screen Exam Complete: Yes Emergency Medical Condition: Yes Differential Diagnosis Splint replacement versus postop complication versus malingering Narrative Course 21-year-old male presents to the emergency department for the sixth time in the last month to have the splint replaced. Patient is afebrile, vital signs are stable. Patient's right upper extremity is neurovascularly intact. The postop wound appears to be healing well with no signs of infection. We'll replace the patient's splint today. He is instructed to keep the appointment with Dr. Kwok on Sunday. Patient agrees to plan. Diagnosis Primary Impression: Laceration of right hand involving tendon Qualified Code: S61.411S - Laceration of right hand involving tendon, sequela Referrals: Anna Kwok MD Patient Instructions: General Instructions, Splint Care (ED) Additional Instructions: Leave splint in place. Follow-up with Dr. Kwok on Sunday as scheduled. Med/Other Pt SpecificInfo: No Change to Meds Disposition: 01 DISCHARGE HOME Condition: Stable Roseanne Clifford Dec 16, 2016 12:17
== END 2016-12-16 12:52 | disposition home or self-care (01) ==
LOC: NEPE 11:56
DX: S56.121A Laceration of flexor muscle, fascia and tendon of right index finger at forearm level, initial encounter (principal); X58.XXXA Exposure to other specified factors, initial encounter
CPT/HCPCS: 29125

== ENCOUNTER 2016-12-28 16:42 | Emergency (ER) | payer OTHER ==
[~2016-12-28] VITALS: Ht 180.3 cm; Wt 62.0 kg
[~2016-12-28 16:42] MED LIST changes: -NORC5TAB PO
[2016-12-28 17:18] VITALS: BP 132/80; PULSE 63; RESP 18; TEMP 98.2; O2SAT 95
--- NOTE | 2016-12-28 19:15 | PD ---
HPI Chief Complaint: Laceration/Skin Injury Time Seen by Provider: 19:08 Travel History International Travel<30 days: No Contact w/Intl Traveler<30days: No Traveled to known affect area: No History of Present Illness HPI Patient is a 21-year-old male with chief complaint of "I got water in my cast " . He had a flexor tendon repair of the right index finger on December 08 and has had multiple visits here for issues with splint as he delayed his care for several weeks. Surgeon is Dr. Kwok. Cast was applied. The patient reports 2 days ago he was walking outside and started to rain he did not have a way to cover the cast. He states he got some water in it and has been sticky since. He states that sutures were already removed last week and he is scheduled to see Dr. Kwok next Sunday. He intermittently has paresthesias in the right index finger but denies sensation loss. No current paresthesia. He denies drainage and fever and chills. PFSH Past Medical History Hx Anticoagulant Therapy: No ADHD: Yes Blood Disorders: No Cancer: No Cardiovascular Problems: Yes (Heart murmur) Diabetes: No Diminished Hearing: No Endocrine: No Genitourinary: No Hepatitis: No Hiatal Hernia: No Immune Disorder: No Musculoskeletal: No Neurologic: No Psychiatric: Yes Reproductive: No Respiratory: No Immunizations Current: Yes Seizures: No Thyroid Disease: No Ulcer: No Tetanus Vaccination: < 5 Years Influenza Vaccination: No Past Surgical History AICD: No Joint Replacement: No Pacemaker: No Other Surgery: No Social History Alcohol Use: Yes (Occ.) Tobacco Use: Yes (11/22 PPD) Substance Use: Yes (LAST USED COCAINE, METH 2 1/2 YRS. AGO) Allergies-Medications (Allergen,Severity, Reaction): Coded Allergies: No Known Allergies (Verified , 12/28/16) Reported Meds & Prescriptions Reported Meds & Active Scripts Active Ibuprofen 800 Mg Tab 800 Mg PO Q8H PRN Review of Systems General / Constitutional: No: Fever, Chills Neurologic: Positive: Paresthesia (intermittent), No: Weakness, Focal Abnormalities, Sensory Disturbance Physical Exam Narrative GENERAL: Well-developed and well-nourished adult male in no acute distress. SKIN: Warm and dry. Good turgor without tenting. HEAD: Normocephalic and atraumatic. EYES: PERRL bilaterally, 5mm. EOMI bilaterally. No injection or icterus present. No proptosis. Lids without edema or erythema. CARDIOVASCULAR: Regular rate and rhythm without murmurs, rubs, clicks or gallops. Capillary refill less than 2 seconds distal tip of all 5 fingers of right hand. RESPIRATORY: Clear to auscultation bilaterally with symmetrical rise and fall, no distress or use of accessory muscles. MUSCULOSKELETAL: Cast in place from the proximal forearm to the distal second and fifth digits of the right hand. There is no edema or erythema or drainage. Patient freely move the fingers of the right hand. The inside of the cast does not appear to be wet or macerated. No gait disturbances. Patient freely moving all four extremities spontaneously. Extremities without clubbing, cyanosis, or edema. No obvious deformities. NEUROLOGIC: CN II-XII grossly intact. Awake and alert. Motor grossly within normal limits. Sensation intact to the fingers of right hand. Normal speech. PSYCHIATRIC: Appropriate mood and affect; insight and judgment normal. Data Data Last Documented VS Vital Signs Date Time Temp Pulse Resp B/P Pulse Ox O2 Delivery O2 Flow Rate FiO2 12/28/16 17:18 98.2 63 18 132/80 95 MDM Medical Decision Making Medical Screen Exam Complete: Yes Emergency Medical Condition: Yes Differential Diagnosis firesetter malfunction versus damage to cast versus paresthesia Narrative Course Patient is a 21-year-old male presenting with request to have his cast cut off and replaced as he got water into it 2 days prior. He reports it is "sticky " on the inside. He is neurovascularly intact and the cast is dry on the areas I' m able to palpate. He states that it got wet from rain. He is able to wiggle all 5 digits of the right hand. I informed the patient that it would be inappropriate to remove this cast early as it is postoperative and recommend he follow up with the hand surgeon tomorrow who may decide to remove it as they plan on removing it on Sunday regardless. If he needs to stay on longer he will then replace it. I reiterated to the patient that this needs to come from the hand surgeon. I see no emergent need to remove the cast here as he is neurovascular intact.See discharge paperwork for further instructions. The plan was discussed with the patient who acknowledged their understanding and agreement. Reinforced the follow-up with primary care is critically important. Patient instructed on emergent conditions that should prompt return to ED. Diagnosis Primary Impression: Laceration of right hand involving tendon Qualified Code: S61.411D - Laceration of right hand involving tendon, subsequent encounter Patient Instructions: General Instructions Additional Instructions: Keep cast on and follow up with Dr. Kwok tomorrow Call [place] patient assistance for bus pass or cab fare if needed Return to the ED for any acute worsening of symptom Disposition: 01 DISCHARGE HOME Condition: Stable Douglas Horne III Dec 28, 2016 19:15
== END 2016-12-28 19:22 | disposition home or self-care (01) ==
LOC: PHEFT 16:42
DX: S61.411D Laceration without foreign body of right hand, subsequent encounter (principal); Z48.00 Encounter for change or removal of nonsurgical wound dressing; X58.XXXD Exposure to other specified factors, subsequent encounter
CPT/HCPCS: 99282

== ENCOUNTER 2016-12-29 16:21 | Emergency (ER) | payer OTHER ==
[~2016-12-29 16:21] MED LIST changes: -CEPH-460 PO
[2016-12-29 17:11] VITALS: BP 140/82; PULSE 80; RESP 18; TEMP 97.7; O2SAT 98
--- NOTE | 2016-12-29 17:16 | PD ---
HPI Chief Complaint: Wound/Suture/Staple Re-Check Time Seen by Provider: 17:09 Travel History International Travel<30 days: No Contact w/Intl Traveler<30days: No Traveled to known affect area: No History of Present Illness HPI Patient is a 21-year-old male presenting with chief complaint of needing a splint for his right index finger. This patient had a flexor tendon laceration of the right index finger in early November and had repair by Dr. Kwok on December 08. At that time he was placed in a cast. The patient has removed the cast previously and has been to the ED 4-5 times to have this redone. I saw him yesterday and he stated that he got water in the cast from rain and the sticky. He had no other complaints. The cast looked unremarkable to myself and did not see any evidence of infection or neurovascular compromise. Because the splint off around noon today with tarah. He states that he has kept his hand in the same position since. Denies any symptoms at this time. PFSH Past Medical History Hx Anticoagulant Therapy: No ADHD: Yes Blood Disorders: No Cancer: No Cardiovascular Problems: Yes (Heart murmur) Diabetes: No Diminished Hearing: No Endocrine: No Genitourinary: No Hepatitis: No Hiatal Hernia: No Immune Disorder: No Musculoskeletal: No Neurologic: No Psychiatric: Yes Reproductive: No Respiratory: No Immunizations Current: Yes Seizures: No Thyroid Disease: No Ulcer: No Tetanus Vaccination: > 5 Years Influenza Vaccination: No Past Surgical History AICD: No Joint Replacement: No Pacemaker: No Other Surgery: No Social History Alcohol Use: Yes (Occ.) Tobacco Use: Yes (11/22 PPD) Substance Use: Yes (LAST USED COCAINE, METH 2 1/2 YRS. AGO) Allergies-Medications (Allergen,Severity, Reaction): Coded Allergies: No Known Allergies (Verified , 12/29/16) Reported Meds & Prescriptions Reported Meds & Active Scripts Active Ibuprofen 800 Mg Tab 800 Mg PO Q8H PRN Review of Systems General / Constitutional: No: Fever Musculoskeletal: Positive: Other (see the history of present illness) Skin: No Rash, No Other (no discharge or swelling) Neurologic: No: Weakness, Focal Abnormalities, Paresthesia, Sensory Disturbance Hematologic/Lymphatic: No: Lymph Node Enlargement Physical Exam Narrative GENERAL: Well-developed and well-nourished adult male in no acute distress. SKIN: Warm and dry. Good turgor without tenting. HEAD: Normocephalic and atraumatic. CARDIOVASCULAR: Regular rate and rhythm without murmurs, rubs, clicks or gallops. Radial pulses 2+ bilaterally. Capillary refill less than 2 seconds distal tip of all fingers of right hand. RESPIRATORY: Clear to auscultation bilaterally with symmetrical rise and fall, no distress or use of accessory muscles. MUSCULOSKELETAL: Patient has a well-healed surgical scar in the distal third of the second metacarpal of the right hand. No evidence of dehiscence or infection. The patient is holding the wrist and slight extension and is flexed at roughly 90 in the MCP joints. No gait disturbances. Patient freely moving all four extremities spontaneously. Extremities without clubbing, cyanosis, or edema. No obvious deformities. NEUROLOGIC: CN II-XII grossly intact. Awake and alert. Motor grossly within normal limits. Sensation intact to the distal tip of second finger right hand. Normal speech. PSYCHIATRIC: Appropriate mood and affect; insight and judgment normal. Data Data Orders Splint Or Brace Apply/Monitor (12/29/16 17:08) [facility] Medical Decision Making Medical Screen Exam Complete: Yes Emergency Medical Condition: Yes Differential Diagnosis Noncompliance versus biomedical equipment tech malfunction versus postoperative complaint Narrative Course Patient is a 21-year-old male who removed a cast that has been in place after flexor tendon repair on December [address] Kwok. He was seen yesterday with complaint of water in the cast 2 days prior. He was neurovascular intact was no sign of infection or significant damage to the cast. He removed it himself today with a pair of tarah. He is neurovascular intact. There is no sign of infection. A volar splint that was to the end of the fingers similar to what I saw all him and yesterday was applied. Of note he had a soft roll with him and it did not have any significant dirt or degradation from the supposedly water. He is scheduled to see Dr. Kwok in follow-up on Sunday.See discharge paperwork for further instructions. The plan was discussed with the patient who acknowledged their understanding and agreement. Reinforced the follow-up with primary care is critically important. Patient instructed on emergent conditions that should prompt return to ED. Diagnosis Primary Impression: Laceration of right hand involving tendon Qualified Code: S61.411D - Laceration of right hand involving tendon, subsequent encounter Additional Impression: Noncompliance Patient Instructions: General Instructions Additional Instructions: Keep the splint on and do not get it wet Follow-up with Dr. Kwok on Sunday as scheduled Return to the ED for any acute worsening of symptoms Med/Other Pt SpecificInfo: Prescription(s) given Disposition: 01 DISCHARGE HOME Condition: Stable Douglas Horne III Dec 29, 2016 17:16
== END 2016-12-29 17:39 | disposition home or self-care (01) ==
LOC: PHED 16:21 → PHEFT 17:39
DX: S66.19 Other injury of flexor muscle, fascia and tendon of other and unspecified finger at wrist and hand level (principal); F17.210 Nicotine dependence, cigarettes, uncomplicated; Z91.14 Patient's other noncompliance with medication regimen
CPT/HCPCS: 29125

== ENCOUNTER 2018-04-11 08:16 | Observation (INO) | payer OTHER ==
[~2018-04-11] VITALS: Ht 180.3 cm; Wt 65.0 kg
[2018-04-11 08:31] VITALS: BP 141/72; PULSE 75; RESP 21; TEMP 97.7; O2SAT 96
[2018-04-11 08:56] LABS: AUTOMATED NEUTROPHIL # 8.4 TH/MM3 (1.8-7.7); BASOPHIL # 0.1 TH/MM3 (0-0.2); BASOPHIL % 0.8 % (0.0-2.0); EOSINOPHIL # 0.1 TH/MM3 (0-0.4); EOSINOPHIL % 0.8 % (0.0-4.0); HEMATOCRIT 40.1 % (39.0-51.0); HEMOGLOBIN 13.4 GM/DL (13.0-17.0); LYMPH % 15.2 % (9.0-44.0); LYMPHOCYTE # 1.7 TH/MM3 (1.0-4.8); MEAN CELL VOLUME 83.4 FL (80.0-100.0); MEAN CORPUSCULAR HEMOGLOBIN 27.9 PG (27.0-34.0); MEAN CORPUSCULAR HGB CONC 33.4 % (32.0-36.0); MEAN PLATELET VOLUME 9.7 FL (7.0-11.0); MONOCYTE # 1.1 TH/MM3 (0-0.9); NEUT % 73.2 % (16.0-70.0); PLATELET COUNT 209 TH/MM3 (150-450); RED CELL DISTRIBUTION WIDTH 15.2 % (11.6-17.2); WHITE BLOOD COUNT 11.4 TH/MM3 (4.0-11.0)
[2018-04-11 09:23] LABS: BICARBONATE 25.4 MEQ/L (21.0-32.0); CALCIUM 8.5 MG/DL (8.5-10.1); CREATININE 0.79 MG/DL (0.60-1.30)
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
[2018-04-11 12:12] VITALS: BP 119/75; PULSE 53; RESP 14; O2SAT 99
[2018-04-11] MEDS ORDERED: ONDANSETRON ODT 4 MG TAB PO PRN (12:15)
[2018-04-11] MEDS ORDERED: SODIUM CHLORIDE 0.9% FLUSH 10 ML FLUSH IV FLUSH PRN (12:15)
[2018-04-11] MEDS ORDERED: MORPHINE SULFATE 8 MG/ML INJ IV PUSH PRN (12:15)
[2018-04-11] MEDS ORDERED: ACETAMINOPHEN/HYDROcodone 325 MG/5 MG TAB PO PRN (12:15)
[2018-04-11] MEDS ORDERED: ACETAMINOPHEN 325 MG TAB PO PRN (12:15)
[2018-04-11 16:00] VITALS: BP 132/73; PULSE 62; RESP 16; TEMP 96.1; O2SAT 100
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
[2018-04-11 19:41] VITALS: BP 135/65; PULSE 65; RESP 16; TEMP 98.6; O2SAT 99
[2018-04-11] MEDS: ACETAMINOPHEN/HYDROcodone 325 MG/5 MG TAB PO PRN (19:58)
[2018-04-11] MEDS: DOCUSATE SODIUM 100 MG CAP PO SCH (19:58)
[2018-04-11] MEDS: BACITRACIN TOP OINT 15 GM TUBE TOP SCH (19:58)
[2018-04-11 22:49] VITALS: BP 123/83; PULSE 53; RESP 16; TEMP 98.4; O2SAT 100
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
[2018-04-12 04:04] VITALS: BP 119/73; PULSE 44; RESP 16; TEMP 97.4; O2SAT 98
[2018-04-12 07:43] LABS: AUTOMATED NEUTROPHIL # 3.2 TH/MM3 (1.8-7.7); BASOPHIL % 0.4 % (0.0-2.0); EOSINOPHIL # 0.1 TH/MM3 (0-0.4); EOSINOPHIL % 2.6 % (0.0-4.0); HEMATOCRIT 40.1 % (39.0-51.0); HEMOGLOBIN 13.1 GM/DL (13.0-17.0); LYMPH % 28.4 % (9.0-44.0); LYMPHOCYTE # 1.6 TH/MM3 (1.0-4.8); MEAN CELL VOLUME 86.1 FL (80.0-100.0); MEAN CORPUSCULAR HEMOGLOBIN 28.1 PG (27.0-34.0); MEAN CORPUSCULAR HGB CONC 32.6 % (32.0-36.0); MEAN PLATELET VOLUME 10.5 FL (7.0-11.0); MONO % 11.4 % (0.0-8.0); MONOCYTE # 0.6 TH/MM3 (0-0.9); NEUT % 57.2 % (16.0-70.0); PLATELET COUNT 171 TH/MM3 (150-450); RED BLOOD COUNT 4.66 MIL/MM3 (4.50-5.90); RED CELL DISTRIBUTION WIDTH 15.7 % (11.6-17.2); WHITE BLOOD COUNT 5.6 TH/MM3 (4.0-11.0)
[2018-04-12] MEDS ORDERED: HYDR-3516 PO ×2 (07:44→09:01)
[2018-04-12 07:57] VITALS: BP 126/60; PULSE 68; RESP 20; TEMP 98.2; O2SAT 96
[2018-04-12 08:09] LABS: BICARBONATE 28.7 MEQ/L (21.0-32.0); CALCIUM 9.1 MG/DL (8.5-10.1); CREATININE 0.75 MG/DL (0.60-1.30)
[2018-04-12] MEDS: DOCUSATE SODIUM 100 MG CAP PO SCH (08:56)
[2018-04-12] MEDS: BACITRACIN TOP OINT 15 GM TUBE TOP SCH (08:57)
[2018-04-12] MEDS: ACETAMINOPHEN/HYDROcodone 325 MG/5 MG TAB PO PRN (08:59)
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
== END 2018-04-12 18:33 | disposition home or self-care (01) ==
LOC: NEPE 08:16 → INTOOBSV 08:45 → NEDA 08:45 → NEPHCDU 14:40
PROVIDERS: ADMIT Surgery Trauma Surgery; ATTEND Surgery Trauma Surgery
DX: S02.31XA Fracture of orbital floor, right side, initial encounter for closed fracture (principal); Y04.0XXA Assault by unarmed brawl or fight, initial encounter; H02.843 Edema of right eye, unspecified eyelid; S00.11XA Contusion of right eyelid and periocular area, initial encounter; S01.412A Laceration without foreign body of left cheek and temporomandibular area, initial encounter
CPT/HCPCS: 70486; 80048; 85025; 94150; 96374; 99283; G0378; J2270